=== PATIENT | male | born 1980 | race Caucasian/White ===

== ENCOUNTER 2016-12-21 17:39 | Emergency (ER) | payer BC ==
[~2016-12-21] VITALS: Ht 160 cm; Wt 55.8 kg
[2016-12-21 17:41] VITALS: Ht 160 cm; Wt 55.8 kg
[2016-12-21] MEDS ORDERED: IBUP200C62 PO (17:53)
[2016-12-21] MEDS ORDERED: TYLENOL (17:53)
--- NOTE | 2016-12-21 17:55 | ERPDOC ---
Departure Disposition Decision Date: Dec 21, 2016 Disposition Decision Time: 17:56 Disposition: 01 DISCHARGED HOME, SELF-CARE Impression Impression Impression: Primary Impression: Pain, dental Severity: Moderate Condition: Stable Seen By: Mid-level only Patient Instructions: Dental Caries (DC) Problems/Meds/Labs Reviewed?: Yes Medications reviewed and manag: Yes Additional Instructions: Take the Pen VK as prescribed. May use the Naproxen and the Tramadol as needed for pain. Call on Friday to schedule an appointment for follow up with your dentist. Follow up care ordered?: Yes Mental Status: Alert, Oriented Scripts Tramadol HCl (Tramadol HCl) 50 Mg Tablet 50 MG PO Q6HR, #15 TAB 0 Refills Take 1 tablet, by mouth, every 6 hours. Prov: MERVAT HAGAN APRN 12/21/16 Penicillin V Potassium (Penicillin V Potassium) 500 Mg Tablet 1 TAB PO TID, #30 TAB 0 Refills Prov: MERVAT HAGAN APRN 12/21/16 Naproxen (Naprosyn) 500 Mg Tablet 1 TAB PO BID, #20 TAB 0 Refills Prov: MERVAT HAGAN APRN 12/21/16 HPI General Chief Complaint: Toothache Stated Complaint: TOOTHACHE Time Seen by Provider: 17:47 Source: patient Exam Limitations: no limitations HPI Dental Initial Comments For the last 3 days he has had some trouble with pain in the right lower jaw. He has two teeth that are fractured with a tooth in between this area. This tooth does have an old filling but some of the enamel is erroded. He did get dental insurance that started today but will not be able to call for a dental appointment until Friday in 2 days. Denies any fever but has had some nausea/ vomiting. Occurred At: home Onset: Gradual Duration: other (Over the last 3 days) Severity: moderate Location: R lower Problem: fractured tooth Associated Symptoms: cheek swelling, sinus pain, vomiting, DENIES: cough, dental trauma, diarrhea, drooling, dyspnea, facial swelling, fever, fractured tooth, gum laceration, gum swelling, headache, high pitched cry/voice, hoarseness, impacted tooth, loose tooth, nausea, retained foreign body, rhinorrhea, sinus drainage, trouble chewing, trouble swallowing Allergies: Coded Allergies: Pertussis Vaccines (Verified Allergy, Unknown, 4/1/17) Past History Past Medical History Pt denies signifigant PMH Surgical History Denies Surgeries Family History Family History: Negative Social History Smoking Status: Never smoker Substance Use Type: does not use Alcohol Intake: none Review of Systems Constitutional Constitutional: DENIES: chills, dizziness, fatigue, fever, weakness Eyes Vision: DENIES: blurring, double vision ENMT Ears: DENIES: drainage, pain Sinuses: DENIES: congestion, rhinorrhea Mouth/Throat: DENIES: change in voice, drooling, hoarsness, painful swallowing , scratchy throat, sore throat, sores, ulcers Teeth: chipped/cracked tooth, pain (right lower jaw), DENIES: bruxism, missing teeth, prior orthodontia Jaw: DENIES: clicking, pain, popping Exam General General Nourishment: well nourished, well developed, appears stated age, no acute distress, adult, thin General Body Habitus: well groomed Vital Signs: RN Vital Signs have been reviewed: Yes, Temperature: 99.2, Source : Oral, Heart Rate: 125, Respiratory Rate: 20, BP: 139/83, Pulse Oximetry: 99 Height (Feet): 5 Height (Inches): 3.00 [place] Dental Face: NOT FOUND: bruising, erythema, swelling, tender Jaw: NOT FOUND: asymmetry, trismus Gums: moist, pink, NOT FOUND: exudate, lesion, swelling Tongue: NOT FOUND: geographic, swelling, ulcers Teeth: caries, fractures, NOT FOUND: crowns, implants, missing Pharynx: NOT FOUND: erythema, exudate, lateral pillar signs, swelling, uvular deviation Tonsils: NOT FOUND: erythema, exudate Neck: L anterior adenopathy, L posterior adenopathy, R anterior adenopathy, R posterior adenopathy Neurologic RN Documented GCS Eye Opening: Verbal: Motor: Total: Differential Diagnoses Considering: Gingival Abscess, Peritonsillar Abscess, Retropharyngeal Abscess, Caries, Gingivitis, Sinusitis Progress Progress Progress He does mostly just want Pen VK today. Will go ahead and start him on this and give him some Naproxen and Tramadol for pain. Call dentist on Friday and follow up in the next 1-2 weeks. MERVAT HAGAN APRN Dec 21, 2016 17:54
[2016-12-21] MEDS ORDERED: TRAM50TA4 PO (17:57)
[2016-12-21] MEDS ORDERED: PENI500T2 PO (17:57)
[2016-12-21] MEDS ORDERED: NAPR500T PO (17:57)
[2016-12-21 18:04] VITALS: BP 130/74; PULSE 120; RESP 20; TEMP 99.1; O2SAT 99
--- OUTSIDE RECORDS SUMMARY | 2016-12-21 18:07 | XMS REPORT | Continuity of Care Document ---
Author Author [facility] Organization [facility] Address Unknown Phone Unavailable Support Name Relationship Address Phone EVANGELIST ANN MD Caregiver [address] [address] Unavailable SHAGGYMANNYALE Next Of Kin [address] [place] [address] Insurance Providers Guarantor Mitchell,Lorenzo W Address [address] [address] Payer [email or web address] Other Policy Number [id number] Subscriber's Name Lorenzo Medrano Relationship 18 Self Group Number [id number] Advance Directives Directive Response Recorded Date/Time Advanced Directives Type None 12/21/16 5:41pm Chief Complaint and Reason for Visit Chief Complaint Toothache Reason for Visit [id number] Problems Active Problems Medical Problem Onset Date Status Pain, dental Unknown Acute Medications Current Home Medications Medication Dose Units Route Directions Days Qty Instructions Start Date Ibuprofen 200 Mg Capsule 3 Cap Oral Every 4 Hours as needed for Pain 12/21/16 Naproxen (Naprosyn) 500 Mg Tablet 1 Tab Oral Twice A Day 20 Tablet 12/21/16 Penicillin V Potassium 500 Mg Tablet 1 Tab Oral Three Times A Day 30 Tablet 12/21/16 Tramadol Hcl 50 Mg Tablet 50 Mg Oral Q6h/0300,0900,1500,2100 15 Tablet Take 1 tablet, by mouth, every 6 hours. 12/21/16 Tylenol As Needed 12/21/16 Social History Social History Problem Response Recorded Date/Time Onset Date Status Hx Substance Use No 12/21/2016 5:41pm Not Applicable Not Applicable Hx Alcohol Use Y OCC 12/21/2016 5:41pm Not Applicable Not Applicable Query Response Start Date Stop Date Smoking Status Former smoker Hospital Discharge Instructions No hospital discharge instructions. Plan of Care Discharge Date 12/21/16 6:04pm Disposition 01 DISCHARGED HOME, SELF-CARE Condition at Discharge Stable Instructions/Education Provided Dental Caries (DC) Prescriptions See Medication Section Additional Instructions/Education Take the Pen VK as prescribed. May use the Naproxen and the Tramadol as needed for pain. Call on Friday to schedule an appointment for follow up with your dentist. Care Plan and Goals Physician Care Plan Problem:Dental Pain Goal: Follow up with primary care provider Instructions: Take medications and follow care plan as discussed/written Functional Status No functional status results. Allergies, Adverse Reactions, Alerts Allergen Type Severity Reaction Status Last Updated Pertussis Vaccines Allergy Unknown Active 12/21/16 Immunizations Query Response on File Recorded Date/Time Influenza Vaccine Hx NONE 12/21/16 5:41pm Vital Signs Acute Vital Signs Vital Response Date/Time Temperature (Fahrenheit) 99.2 deg F (96.8 - 99.1) 12/21/2016 5:41pm Temperature (Calculated Celsius) 37.33271 degrees C (36.0 - 37.3) 12/21/2016 5:41pm Pulse Rate (adult) 125 bpm (60 - 100) 12/21/2016 5:41pm Respiratory Rate 20 breaths/min (10 - 20) 12/21/2016 5:41pm O2 Sat by Pulse Oximetry 99 % (90 - 100) 12/21/2016 5:41pm Blood Pressure 139/83 mm Hg 12/21/2016 5:41pm Height (Feet) 5 feet 12/21/2016 5:41pm Height (Inches) 3.00 inches 12/21/2016 5:41pm Weight (Kilograms) 55.800 kg 12/21/2016 5:41pm Body Mass Index (BMI) 21.0 12/21/2016 5:41pm Results No known relevant diagnostic tests, laboratory data and/or discharge summary. Procedures No known history of procedures. Encounters Encounter Location Arrival/Admit Date Discharge/Depart Date Attending Provider Departed Emergency Room [facility] 12/21/16 5:39pm 12/21/16 6: 04pm EVANGELIST ANN MD Recent Diagnosis
== END 2016-12-21 18:04 | disposition home or self-care (01) ==
LOC: ED 17:39
DX: K02.9 Dental caries, unspecified (principal)